=== PATIENT | female | born 1960 | race Caucasian/White ===

== ENCOUNTER 2016-09-12 05:16 | Day surgery (SDC) | payer BC ==
[2016-09-11 09:45] LABS: HEMATOCRIT 43.9 % (36.0-48.0); HEMOGLOBIN 14.1 g/dL (12-16); MCH 30.7 pg (26.0-34.0); MCHC 32.1 g/dL (31.0-37.0); MCV 95.6 fL (80.0-100.0); MEAN PLATELET VOLUME 10.7 fL (7.4-10.4); RBC 4.59 10x6/uL (4.00-5.40); RDW 13.1 % (11.5-14.5); WBC 6.4 10x3/uL (4.8-10.8)
[~2016-09-12] VITALS: Ht 165.1 cm; Wt 79.4 kg
[~2016-09-12 05:16] MED LIST: ATIVAN0.5 MG PO; CALTRATE 600 M600 M1 PO; CYCLOBENZAPRINE10 MG PO; FENOPROFEN CAL600 MG PO; HYDROCODON-ACE1 EAC7 PO; HYDROCODONE-APA1 TAB PO; IPRAT-ALBUT 0.5-3 ML UPD; NAPROXEN SODIU220 M1 PO; NEURONTIN800 MG PO; OMEPRAZOLE20 M1 PO; PEPCID20 MG PO; PROAIR HFA8.5 GM INH; PROBIOTIC1 EAC1 PO; REQUIP1 MG PO; TENORMIN25 MG PO
[2016-09-12 06:11] VITALS: BP 125/70; Ht 165.1 cm; Wt 79.4 kg
[2016-09-12] MEDS ORDERED: HYDROCODONE-APA1 TAB PO (08:25)
--- NOTE | 2016-09-12 10:25 | NUR ---
1020 DISCHARGE INSTRUCTIONS REVIEWED WITH PATIENT & PENDELUM EXERCISES DEMMONSTRATED; VERBALIZED UNDERSTANDING
--- NOTE | 2016-09-13 15:11 | OP ---
PATIENT NAME: KRIS JARRETT MEDICAL RECORD: [id number] :64 LOCATION:[facility] ADMISSION DATE: SURGEON: YUDI SRINIVASAN MD DATE OF OPERATION: 09/12/2016 PREOPERATIVE DIAGNOSES: 1. Rotator cuff tear of the left shoulder. 2. Impingement syndrome of the left shoulder. 3. Acromioclavicular arthritis of the left shoulder. POSTOPERATIVE DIAGNOSES: 1. Rotator cuff tear of the left shoulder. 2. Impingement syndrome of the left shoulder. 3. Acromioclavicular arthritis of the left shoulder. 4. Severe biceps tendinitis. PROCEDURES: 1. Arthroscopic rotator cuff repair. 2. Arthroscopic biceps tenodesis. 3. Arthroscopic distal clavicle excision. 4. Arthroscopic subacromial decompression, acromioplasty and bursectomy. SURGEON: Yudi Srinivasan MD. ANESTHESIA: General. INTRAOPERATIVE COMPLICATIONS: None. SUMMARY OF PATHOLOGIC FINDINGS: Consistent with the preoperative diagnosis and MRI. The patient had full-thickness rotator cuff tearing along with severe impingement, acromioclavicular arthritis as well as severe biceps tendinitis. OPERATIVE SUMMARY IN DETAIL: After obtaining the appropriate preoperative orthopedic surgery consent as well as anesthetic consultation, evaluation and clearance, the patient was brought to the operating room and placed on the operating table in supine position. After general laryngeal mask was administered, the patient was placed in the right lateral decubitus position. All pressure points were well padded to include down leg peroneal pad as well as axillary roll. The patient was held firmly to the operating table using the vacuum pack suction system. Left upper extremity and shoulder were prepped and draped in routine sterile fashion. The arm was held in the [employer] traction boom at 30 degrees of forward flexion, 30 degrees of abduction with 10 pounds of traction laterally. Arthroscopy was established in the glenohumeral joint from a posterior portal. Anterior portal was established in the anterior safe interval. Diagnostic arthroscopy revealed the above findings. A transarthroscopic rotator cuff tear portal was created through which debridement of the rotator cuff as well as decortication was carried out using arthroscopic resector to the same portal. Surface tissue ablation system was used to perform a biceps tenotomy as the biceps was nearly completely torn. Having completed this, attention was turned to the subacromial space. While in the subacromial space, the undersurface of the acromion was denuded with the [place] tissue ablation system and the coracoacromial ligament was released. A 5-0 barrel renetta was used to perform acromioplasty at the level of acromioclavicular joint and through a separate arthroscopic anterior portal, distal clavicle was excised for 1 cm. Having completed this, attention was returned to the rotator cuff. OPERATIVE REPORT [id number] KRIS JARRETT Further decortication was carried out. A single #2 FiberTape was placed in an inverted mattress style fashion and was anchored laterally using the 5.5 SwiveLock from [employer]. Having completed this, arthroscopy portals were closed in routine interrupted fashion using 4-0 Prolene. Sterile dressings were applied. The patient was awakened and taken to the recovery room in stable condition. All final needle and sponge counts were correct. TRANSINT:[id number] Voice Confirmation ID: [id number] DOCUMENT ID: [id number] CRAIG STEINBERG, YUDI GARDNER at 1511 CC: [id number] DICTATION DATE: 09/12/16 0828 [employer] COUNTER PERSON: 09/12/16 0917 [facility] 09/12/16 [facility] [address] [place] [address]
== END 2016-09-12 10:20 | disposition home or self-care (01) ==
LOC: D.OPS 05:16 → D.PAN 08:00 → D.OPS 10:20
PROVIDERS: Anesthesiology
DX: M75.122 Complete rotator cuff tear or rupture of left shoulder, not specified as traumatic (principal); M75.42 Impingement syndrome of left shoulder; M13.812 Other specified arthritis, left shoulder; M75.22 Bicipital tendinitis, left shoulder